=== PATIENT | female | born 1985 | race Hispanic/Latino ===

== ENCOUNTER 2017-02-18 08:10 | Day surgery (SDC) | payer BC ==
[2017-02-17 10:05] VITALS: BMI 18.3
[2017-02-18 08:59] LABS: HEMOGLOBIN 13.6 g/dL (12.0-16.0); MEAN CELL VOLUME 91.3 fl (81.0-99.0); MEAN CORPUSCULAR HEMOGLOBIN 30.2 pg (27.0-31.0); MEAN CORPUSCULAR HGB CONC 33.1 g/dL (33.0-37.0); RBC 4.49 Mil/uL (3.80-5.20); RED CELL DISTRIBUTION WIDTH 13.4 % (11.5-14.5); WHITE BLOOD COUNT 4.5 K/uL (4.8-10.8)
[2017-02-18 09:00] VITALS: RESP 18
[2017-02-18] MEDS ORDERED: Propofol 10 mg/ml Inj (20 ML) ONE (11:19)
[2017-02-18] MEDS ORDERED: Rocuronium 10 mg/ml (5 ml) ONE (11:20)
[2017-02-18] MEDS ORDERED: Midazolam 2 MG/2 ML VIAL ONE (11:20)
[2017-02-18] MEDS ORDERED: Succinylcholine 200 mg/10 ml Inj IV ONE (11:20)
[2017-02-18] MEDS ORDERED: Lidocaine 4% (Laryng-O-Jet) Kit MM ONE (11:21)
[2017-02-18] MEDS ORDERED: Bupivacaine 0.5% Inj(30mL) ONE (11:38)
[2017-02-18] MEDS ORDERED: ceFAZolin IV 1 gm in Dextrose 1 GM/50 ML BAG IVPB ONE (11:38)
[2017-02-18] MEDS ORDERED: Lactated Ringer's 1,000 ML IV ONE ×2 (11:50→12:00)
[2017-02-18] MEDS ORDERED: Dexamethasone 4 mg/1 ml ONE (12:26)
[2017-02-18] MEDS ORDERED: Oxycodone/Acetaminophen 5/325 mg Tab PO PRN (13:06)
[2017-02-18] MEDS ORDERED: HYDROmorphone 0.5 mg/0.5 ml ISec IVP PRN (13:07)
[2017-02-18] MEDS ORDERED: Lactated Ringer's 1,000 ML IV SCH (13:15)
[2017-02-18 16:38] VITALS: BP 112/66; PULSE 78; TEMP 98; O2SAT 99
--- NOTE | 2017-03-08 13:53 | OP ---
PROCEDURE DATE: 02/18/17 SURGEON: Handy Donald MD ELECTRICIAN SECOND: Walter Salas ANESTHESIOLOGIST: MD Suad Buck Carbonello, MD Justin ANESTHETIC: General Endo PREOPERATIVE DIAGNOSES: PELVIC PAIN , BLADDER PAIN RULE OUT ENDOMETRIOSIS POSTOPERATIVE DIAGNOSES: PELVIC PAIN , BLADDER PAIN RULE OUT ENDOMETRIOSIS PROCEDURE PERFORMED: Da Susy Laparoscopy for endometriosis, Cystoscopy with Bilateral Ureteral Stenting and Dye Injection, Hysteroscopy, right ureterolysis COMPLICATIONS: None. SAMPLES: Sent to pathology. DRAINS: Proctor catheter. ESTIMATED BLOOD LOSS: Minimal. DESCRIPTION OF PROCEDURE: After the consent was obtained, the patient was brought to the operating room and placed on the operating table in the dorsal supine position. An intravenous catheter was started; antibiotics were administered. After satisfactory anesthesia was induced, the patient was then positioned in dorsal lithotomy position, and every area prone to pressure was padded. The external genitalia in the abdomen was sterilely prepped and draped in the standard fashion and a time out was performed. At this point, the cystoscope was introduced in the bladder under direct vision, a stewart-cystoscopy was performed and attention was paid to both ureteral orifices, which were in a normal anatomical position. The left ureteral orifice was then catheterized with a Portuguese open ending ureteral catheter. A solution of indocyanine green of 5 mL was injected into the left ureter and after the ureteral catheter was advanced into the distal ureter. The ureteral catheter was then removed. Attention was paid to the right ureteral orifice and at this point, a urethral catheter was advanced to the level of the right distal ureter. An additional 4 mL of indocyanine green were injected into the right ureter. The ureteral catheter was then removed. The bladder was then inspected and noted to be free of tumors, stones, or bleeding sources. The cystoscope was then removed and a 16 Portuguese Proctor catheter was placed. At this point, attention was turned to the vaginal area, where a speculum was placed in the vagina. The anterior lip of the cervix was grasped. The uterus was dilated and the hysteroscope was inserted in the uterine cavity revealing a normal size cavity with both ureters also being visualized. At this point, the hysteroscope was removed, and a Valtchev uterine manipulator was placed in the uterus, and the attention was turned to the abdomen. An incision was made below the umbilicus with a standard open laparoscopy technique. The abdominal cavity was then entered in a blunt fashion. Under direct visualization, additional trocars were inserted, left upper quadrant, right upper quadrant, and mid quadrant. At this point, the da Susy robot was brought on to the field and it was docked. The findings were followed. There were multiple areas which were slightly erythematous suggestive of endometriosis, mostly in the right pelvic side wall. he ovaries were inspected and appearing to be normal and tubes were also inspected. Attention was on the right-end side after examined the right ovarian tube, again, the right ureter was identified. The peritoneum overlying the right ureter was elevated. The retroperitoneal space was entered and the wide area of peritoneum was also excised with a partial pelvic sidewall peritonectomy being performed. At this point, we checked with fluorescence for both ureters, they are appeared to be in perfect condition. A peritoneum was also ablated from the posterior cervical area, he cul de sac and the posterior aspect of the uterus. Area suspicious for superficial endometriosis was bipolar coagulated in the posterior cul-de-sac. At this point, it was checked for hemostasis, and appeared to be excellent. The pelvis was irrigated. The ureter appeared to be in excellent condition and intact and undamaged. The bowel was also in perfect condition. At this point, the robot was undocked, the abdomen was desufflated, the instruments were removed. The incisions were closed in layers with 0 PDS for the fascia. The skin was closed with 4-0 Monocryl and a surgical glue. All the instruments were removed from the vagina. The cervix was inspected and appeared to be in excellent condition. At this point, the patient was woken up and taken to the recovery room in excellent condition. Handy Donald MD [facility]
== END 2017-02-18 17:10 | disposition home or self-care (01) ==
LOC: H.OPSURG 08:10
PROVIDERS: ATTEND Obstetrics & Gynecology Reproductive Endocrinology
DX: N80.0 Endometriosis of uterus (principal)
CPT/HCPCS: 36415; 52332; 85027; 86850; 86900; 88305; C1729; J0330; J0690; J1100; J1885; J2001; J2250; J2405; J2704; J2765; J3010; J7040; J7120